=== PATIENT | male | born 1980 | race Caucasian/White ===

== ENCOUNTER 2024-11-30 01:45 | Emergency (ER) | payer SELFPAY ==
--- NOTE | 2024-11-30 02:22 | Physician Documentation ---
History of Present Illness ~ Chief Complaint: Head Injury Stated Complaint: FALL/ FACE PAIN Time Seen by MD: 02:22 OK to notify your PCP?: Yes Primary Medical Doctor: Aleisha Schmidt Exam Limitations: intoxication HPI 44-year-old male, who presents with a fall and head injury He admits to drinking a large amount of alcohol today. He tells me he was stepping out of a truck, when he fell and landed directly on his face on the ground. Unknown loss of consciousness. He does have a laceration to his nose and abrasions to his face. He reports having a headache. He reports neck pain. He denies any other significant injury. No extremity injury. No nausea or vomiting. He tells me he did have a tetanus shot within the last 10 years. Tetanus within 5 years?: No Medication Reconciliation Allergies: Coded Allergies: No Known Allergies (Unverified , 11/30/24) Past Medical History Past Medical History: Chronic Back Pain Past Surgical History: no surgical history Drug Use: none Lives with: Spouse Lives In: Home Review of Systems Gastrointestinal: Denies: nausea, vomiting Neurological: Reports: headache Physical Exam Vital Signs: Heart Rate: 80, Respiratory Rate: 16, BP: 131/89, Pulse Oximetry: 99 Oxygen Flow Rate: 0 Physical Exam General:This is a young male, appears clinically intoxicated, with obvious facial injuries HEENT: The patient has significant facial trauma. This includes a large abrasion and hematoma over the right forehead. He has a 1 cm full-thickness laceration over the bridge of the nose with surrounding bruising. He has abrasions and bruising to the right cheek and face. He has dried blood around the nares. He has generalized tenderness on palpation of the forehead and cheek bones. No tenderness on palpation of the lower jaw. No intraoral injuries. Neck: The patient has mild generalized tenderness on palpation of his neck but no focal midline tenderness Heart: Mild tachycardic, appears regular, normal-appearing peripheral perfusion Lungs: normal work of breathing, normal oxygen saturation on room air Extremities: Warm and well-perfused. Full range of motion without pain in all 4 extremities. He is able to stand and bear weight. Neuro: Appears sedated but is oriented, no focal deficits Psychiatric: Appears mildly sedated, has slurred speech, smells of alcohol, appears clinically intoxicated, but is cooperative Procedures Laceration/Wound Repair Laceration/Wound Repair : Length (cm): 1 Anesthesia: Lidocaine w/ Epi Debrided: extensive Foreign Body: not identified Repaired: skin Wound Repaired With: sutures Suture Size/Type: 5-0 Number of Superficial Sutures: 2 Tolerated Procedure Well?: yes, no complications Progress Results/Orders Results/Orders Orders - RICARDO SANTACRUZ MD Ct Head (11/30/24 02:00) Ct Cervical Spine (11/30/24 02:00) Ct Facial Bones/Soft Tissue (11/30/24 02:00) Completed Orders - RICARDO SANTACRUZ MD Ct Head (11/30/24 02:00) Ct Cervical Spine (11/30/24 02:00) Ct Facial Bones/Soft Tissue (11/30/24 02:00) Vital Signs 11/30/24 11/30/24 11/30/24 11/30/24 01:51 02:21 02:37 04:53 Temp 98.5 Pulse 80 82 75 Resp 16 10 12 10 B/P (MAP) 131/89 134/93 (107) 131/109 Pulse Ox 99 97 97 O2 Flow Rate 0 0 EKG/XRAY/CT/US/VASC/MRI CT : Impression I personally reviewed the CT scan, and this shows: CT head: No acute fracture, intracranial hemorrhage, or mass CT face: Possible mild nasal fracture, but otherwise no acute fracture to the facial bones, no orbital fracture, no oral fracture CT cervical spine: No acute fracture or malalignment Medical Decision Making Differential Dx:Considerations: Include: Closed head injury, Cervical spine injury, Skull facture, Fracture, Abrasion, Contusion, Foreign body, Laceration, Intoxication-alcohol, Intoxication-other drug Assessment The patient presents with a fall and head injury. On exam he does have findings concerning for possible facial bone fractures as well as intracranial hemorrhage or neck injury. CT scans do not show any dangerous fractures or intracranial hemorrhage. His tetanus is up-to-date. His wounds were cleaned, in the laceration on his nose was repaired with sutures. He will be discharged home with symptomatic treatment, home care instructions for his wounds, and return for suture removal. No other dangerous injuries identified. Departure Time of Disposition: 04:41 Disposition: 01 HOME / SELF CARE / HOMELESS Impression: Primary Impression: Injury of head Additional Impressions: Nasal laceration Facial contusion Condition: Improved Discharge Instructions: Laceration Care, Adult Referrals: NO PRIMARY CARE PROVIDER (PCP) Education Educated: Patient, Family Educated regarding: diagnosis, need for follow up Signature Scribe Signature: na Attestation: RICARDO Pérez MD November 30, 2024 02:22
--- NOTE | 2024-11-30 02:36 | RADIOLOGY REPORT ---
Clinical History head strike Comparison None Technique: Noncontrast CT volume data aquisition of the head viewed in axial, coronal and sagittal pl anes. All CT scans at this medical facility are performed using dose modulation techniques as appropriate t o a performed exam including the following: Automated exposure control was utilized; adjustment of th e mA and/or kV according to patient size; and use of iterative reconstruction technique. All CT studies are reported to the Dose Index Registry of the [employer]. Without Contrast Radiation Dose: CTDI (mGy): 57.89; DLP (mGy-cm): 1092.16 JEFE SANTOS, [id number] FINDINGS: Ventricles are of normal size, shape and position. There are no intra-axial or extra-axial collectio ns of blood or fluid. There is no mass, mass effect or shift of midline structures. There is no CT evidence for acute ischemic infarct. MRI is more sensitive for this diagnosis. Posterior fossa structures are unremarkable. Sella and parasellar regions are unremarkable. Basal c isterns are patent. Orbits and orbital contents are unremarkable, paranasal sinuses and mastoid air cells clear, osseous structures intact. There is a frontal scalp wound just to the right of midline. IMPRESSION: 1. No significant intracranial pathology identified on noncontrast CT 2. No evidence of acute intracranial hemorrhage. No evidence of skull fracture. 3. Frontal scalp wound. This report was electronically signed by Rakan Packer MD on 11/30/2024 2:32:40 AM.
--- NOTE | 2024-11-30 02:38 | RADIOLOGY REPORT ---
Clinical History HEADSTRIKE W/ LOC Comparison None Technique: Noncontrast CT volume data acquisition of the face presented in axial, coronal and sagitta l planes All CT scans at this medical facility are performed using dose modulation techniques as appropriate t o a performed exam including the following: Automated exposure control was utilized; adjustment of th e mA and/or kV according to patient size; and use of iterative reconstruction technique. All CT studies are reported to the Dose Index Registry of the [employer]. Without Contrast Radiation Dose: CTDI (mGy): 54.49; DLP (mGy-cm): 933.05 JEFE SANTOS, [id number] FINDINGS: Motion artifact degrades some images, especially those of anterior mandible. Nasal bones, nasal septum and nasal spine are intact. Orbits and orbital contents are intact and unremarkable. Paranasal sinuses are intact with minimal chronic disease noted. Mandible and temporomandibular joints do not suggest acute pathology on this study. Zygomatic arches, pterygoid plates and hard palate are intact. Parotid glands and submandibular salivary glands are unremarkable on this study, airway patent, epigl ottis normal, nasopharynx unremarkable. Frontal scalp wound again noted. IMPRESSION: 1. No evidence of acute fracture of the facial bones. 2. Orbits and orbital contents intact and unremarkable, minimal chronic sinus disease noted. This report was electronically signed by Rakan Packer MD on 11/30/2024 2:35:01 AM.
--- NOTE | 2024-11-30 02:46 | RADIOLOGY REPORT ---
Clinical History head strike Comparison None Technique: Noncontrast CT volume data acquisition of the cervical spine presented in axial, coronal a nd sagittal planes All CT scans at this medical facility are performed using dose modulation techniques as appropriate t o a performed exam including the following: Automated exposure control was utilized; adjustment of th e mA and/or kV according to patient size; and use of iterative reconstruction technique. All CT studies are reported to the Dose Index Registry of the [employer]. Without Contrast Radiation Dose: CTDI (mGy): 19.87; DLP (mGy-cm): 445.07 JEFE SANTOS, [id number] FINDINGS: Vertebral bodies are of normal height, alignment and radiographic density. Posterior elements are in tact, facet relationships maintained, intervertebral disc spaces preserved. Craniocervical junction structures and relationships reveal no evidence of acute pathology. There is no evidence of fracture or alignment abnormality in the cervical spine. There is no evidence of disc herniation or spinal canal stenosis. Paraspinous and paravertebral soft tissue structures are unremarkable, airway patent, epiglottis norm al, thyroid gland unremarkable. Limited evaluation of lung apices is unremarkable. IMPRESSION: 1. No evidence of fracture or alignment abnormality in the cervical spine. This report was electronically signed by Rakan Packer MD on 11/30/2024 2:43:55 AM.
[2024-11-30 04:53] VITALS: BP 131/109; PULSE 75; RESP 10; TEMP 98.5; O2SAT 97
== END 2024-11-30 04:51 | disposition home or self-care (01) ==
LOC: ER 01:46
DX: S01.21XA Laceration without foreign body of nose, initial encounter (principal); W18.39XA Other fall on same level, initial encounter; Y93.89 Activity, other specified; Y92.89 Other specified places as the place of occurrence of the external cause; Y99.8 Other external cause status
CPT/HCPCS: 12011; 70450; 70486; 72125; 99284; J7030; L0172; A6449